=== PATIENT | male | born 2000 | race Caucasian/White ===

== ENCOUNTER 2021-10-24 20:17 | Emergency (ER) | payer OTHER, BC ==
[2021-10-24] MEDS ORDERED: Ibuprofen 200 MG TAB ONE (20:40)
[2021-10-24] MEDS ORDERED: Acetaminophen 500 MG TAB ONE (20:41)
== END 2021-10-24 22:07 | disposition home or self-care (01) ==
LOC: CSHERS 20:17
DX: N50.811 Right testicular pain (principal)
CPT/HCPCS: 76870; 93976